=== PATIENT | male | born 1970 | race Caucasian/White ===

== ENCOUNTER 2017-07-07 06:59 | Observation (INO) | payer OTHER ==
[~2017-07-07] VITALS: Ht 182.9 cm; Wt 138.0 kg
[2017-07-07] VITALS (16 sets, daily range): BP systolic 136–166; BP diastolic 76–94; PULSE 42–96; TEMP 36.6–37; O2SAT 94–98; Ht 182.9 cm; Wt 138.0 kg
[~2017-07-07 06:59] MED LIST: ACC10 PO; COD PO; FLX10 PO; LACTATED RINGER'S 1000ML 1,000 ML IV SCH; SIMV40TA2 PO; TYLENOL PO
[2017-07-07] MEDS ORDERED: FENTANYL CITRATE INJ 50 MCG/1 ML 2 ML VIAL IV PRN (07:00)
[2017-07-07] MEDS ORDERED: EpHEDrine SULFATE INJ 50 MG/ML AMP IV PRN (07:00)
[2017-07-07] MEDS ORDERED: ONDANSETRON INJ 2 MG/ML 2 ML VIAL IV PRN ×2 (07:00→14:30)
[2017-07-07] MEDS ORDERED: ATROPINE SULFATE 0.1 MG/ML 5ML SYR IV PRN (07:00)
[2017-07-07] MEDS ORDERED: ASPI81TA28 PO (07:23)
[2017-07-07] MEDS ORDERED: METO-596 PO (07:25)
[2017-07-07] MEDS ORDERED: TRAM-10 PO (07:26)
[2017-07-07] MEDS ORDERED: FLUT0.15 (07:28)
[2017-07-07] MEDS ORDERED: FLEC100T21 PO (07:29)
[2017-07-07] MEDS ORDERED: albuterol inhaler INH (07:31)
[2017-07-07] MEDS ORDERED: MIDAZOLAM HCL 1 MG/ML 2ML VIAL ONE ×2 (07:49→09:45)
[2017-07-07] MEDS ORDERED: LIDOCAINE HCL 2% 2 ML VIAL (20MG/ML) ONE (07:49)
[2017-07-07] MEDS ORDERED: FENTANYL CITRATE INJ 50 MCG/1 ML 2 ML VIAL ONE (07:49)
[2017-07-07] MEDS ORDERED: PROPOFOL IV EMULSION 10 MG/ML 20 ML VIAL IV ONE ×10 (07:49→11:32)
--- NOTE | 2017-07-07 08:10 | History & Physical Bridge Note ---
H&P Re-Evaluation Bridge Note: I have examined the patient, reviewed the History & Physical and in the interval since the performance of the History & Physical I have noted the following changes of clinical significance: No changes noted
[2017-07-07] MEDS ORDERED: HEPARIN SOD (PORCINE) 1000 UNIT/ML 10 ML VIAL ONE (08:23)
[2017-07-07] MEDS ORDERED: LIDOCAINE HCL 1% 20 ML VIAL ONE (08:28)
[2017-07-07] MEDS ORDERED: KETAMINE HCL INJ 50 MG/ML 10 ML VIAL ONE (10:02)
[2017-07-07] MEDS ORDERED: HydrALAZINE HCL 20 MG/ML VIAL ONE (10:20)
[2017-07-07] MEDS ORDERED: OXYCODONE/ACETAMINOPHEN 5-325 TAB PO PRN (11:45)
[2017-07-07] MEDS ORDERED: ACETAMINOPHEN 325 MG TAB PO PRN (11:45)
[2017-07-07] MEDS ORDERED: TRAMADOL HCL 50 MG TAB PO PRN (11:45)
[2017-07-07] MEDS ORDERED: ALBUTEROL HFA 8 GM INHALER INH PRN (11:45)
--- NOTE | 2017-07-07 11:58 | [facility] Post Operative Brief Note ---
Immediate Operative Summary Operative Date Jul 07, 2017. Pre-Operative Diagnosis p. atrial flutter Post-Operative Diagnosis same, bidirectional block across cavo-tricuspid isthmus Procedure(s) Performed eps, 3d mapping of his bundle, 3d activation map of RA, radiofrequency ablation of cavo-tricuspid isthmus (CTI) Surgeon serena sanchez Broadcast Operations Director Surgeon(s) none Estimated Blood Loss <5cc Findings see official report Fluids (cc crystalloids) 2000 Specimens None Drains None Anesthesia 5mg versed, 100mcg fentanyl, 50mg ketamine, 1500mg propofol Complication(s) None Disposition PCU
[2017-07-07] MEDS ORDERED: LPR100 PO (12:01)
--- NOTE | 2017-07-07 12:02 | Discharge Instructions ---
Discharge Instructions Date of Service Jul 07, 2017. Admission Reason for Admission: Atrial Flutter With Anesthesia Discharge Discharge Diagnosis / Problem: paroxysmal atrial flutter Discharge Goals Goal(s): Improve function Activity Recommendations Activity Limitations: as noted below Lifting Limitations: no more than 10 pounds (for 1 week) May Resume Sexual Activity: after one week Shower/Bathe: tomorrow Driving or Machine Use: resume 1 day after discharge . Instructions / Follow-Up Instructions / Follow-Up ACTIVITY RECOMMENDATIONS: It is common to feel weak and fatigue for a few days. * Do not drive or operate any motorized equipment for the next 1 day. * Limit stair usage (2 or 3 trips a day only) for the next three days. * Do not lift anything heavier than 10 pounds for the next 7 days. * Do not engage in vigorous exercise or any sports for the next five days. * You may shower the day after your procedure, but do not immerse the area for three days. Cleanse the site gently with soap and water. SPECIAL CARE INSTRUCTIONS: * You may replace the pressure dressing or band-aid the morning after the procedure. * After your procedure, it is normal to have a small bruise or small lump at the site. Examine your site daily for any change in the bruise or lump, redness, swelling, drainage or numbness. Notify your doctor if any change. BLEEDING: * If there is a small amount of bleeding at the site, lie down and apply firm pressure with a clean cloth for ten minutes. When the bleeding stops, lie quietly keeping the procedure limb straight for six hours. Notify your doctor as soon as possible. * If the bleeding does not stop after ten minutes or if there is a large amount of bleeding or spurting, call 911 immediately. Continue to lie down and hold firm pressure until help arrives. SKIN IRRITATION: * You may experience some redness and/or swelling in the area where radiation was administered. If any skin irritation occurs, please contact your family physician. FOLLOW UP VISIT: Keep any scheduled doctor appointments. Current Hospital Diet Patient's current hospital diet: AHA Diet (Heart Healthy) Discharge Diet Recommended Diet: Regular Diet Procedures Procedures Performed: eps, 3d mapping of his bundle, 3d activation map of RA, radiofrequency ablation of cavo-tricuspid isthmus (CTI) Pending Studies Studies pending at discharge: no Medical Emergencies . Who to Call and When: Medical Emergencies: If at any time you feel your situation is an emergency, please call 911 immediately. . Non-Emergent Contact Non-Emergency issues call your: Director Treasurer . . "Provider Documentation" section prepared by Fatimah Villanueva. . VTE Core Measure Inpt VTE Proph given/why not?: Treatment not indicated
--- NOTE | 2017-07-07 12:05 | Discharge Summary ---
Discharge Summary Date of Service Jul 07, 2017. Discharge Summary Admission Date: 07/07/2017 Discharge Date: Jul 08, 2017 Discharge Disposition: Home Principal Diagnosis: paroxysmal atrial flutter Secondary Diagnoses/Problems: htn chronic back pain Procedures: eps, 3d mapping of his bundle and 3d activation mapping of the RA; radiofrequency ablation of cavo-tricuspid isthmus Medication Reconciliation New Medications: Metoprolol Tartrate (Metoprolol Tartrate) 100 Mg Tab 50 MG PO BID for 30 Days, #30 TAB Continued Medications: Aspirin (Aspirin Ec) 81 Mg Tab 81 MG PO DAILY Fluticasone Propionate (Nasal) (Flonase Allergy Relief) 50 Mcg/Act Spr 2 SPRAYS NA DAILY Tramadol (Ultram) 50 Mg Tab 50 MG PO Q6 PRN for Pain, TAB [albuterol inhaler] () 2 PUFFS INH QID PRN for Wheezing Discontinued Medications: Flecainide (Tambocor) 100 Mg Tab 100 MG PO Q12, TAB Metoprolol Tartrate (Lopressor) 100 Mg Tab 100 MG PO BID, TAB took 5omg night before surgery or half tab as dirested by MD Admission Information Physical Exam (per Admitting): aaox3, NAD Supple, No JVD Nrl S1/S2, no murmur CTA b/l no w/r/r soft NT/ND No edema b/l No focal deficits Skin intact Hospital Course Pt admitted for elective atrial flutter ablation. He underwent procedure without any complications; monitored overnight. His flecainide was discontinued and his metoprolol was decreased. He was discharged home following day. Total time spent on discharge = 30 minutes This includes examination of the patient, discharge planning, medication reconciliation, and communication with other providers. Discharge Instructions ACTIVITY RECOMMENDATIONS: It is common to feel weak and fatigue for a few days. * Do not drive or operate any motorized equipment for the next 1 day. * Limit stair usage (2 or 3 trips a day only) for the next three days. * Do not lift anything heavier than 10 pounds for the next 7 days. * Do not engage in vigorous exercise or any sports for the next five days. * You may shower the day after your procedure, but do not immerse the area for three days. Cleanse the site gently with soap and water. SPECIAL CARE INSTRUCTIONS: * You may replace the pressure dressing or band-aid the morning after the procedure. * After your procedure, it is normal to have a small bruise or small lump at the site. Examine your site daily for any change in the bruise or lump, redness, swelling, drainage or numbness. Notify your doctor if any change. BLEEDING: * If there is a small amount of bleeding at the site, lie down and apply firm pressure with a clean cloth for ten minutes. When the bleeding stops, lie quietly keeping the procedure limb straight for six hours. Notify your doctor as soon as possible. * If the bleeding does not stop after ten minutes or if there is a large amount of bleeding or spurting, call 911 immediately. Continue to lie down and hold firm pressure until help arrives. SKIN IRRITATION: * You may experience some redness and/or swelling in the area where radiation was administered. If any skin irritation occurs, please contact your family physician. FOLLOW UP VISIT: Keep any scheduled doctor appointments.
[2017-07-07] MEDS ORDERED: IV FLUIDS COMPLETED PRN (12:30)
[2017-07-07] MEDS ORDERED: ONDANSETRON INJ 2 MG/ML 2 ML VIAL ONE (14:11)
[2017-07-07] MEDS ORDERED: NURSING VERBAL MED ORDER ONE (14:15)
--- NOTE | 2017-07-07 14:22 | Anesthesiology Progress Note ---
Anesthesia Post Op Note Date & Time Jul 07, 2017 at 14:21 Vital Signs Pain Intensity: 4.0 Vital Signs Past 12 Hours Date Time Temp Pulse Resp B/P (MAP) Pulse Ox O2 Delivery O2 Flow Rate FiO2 07/07/17 12:25 76 16 138/75 (96) 96 Room Air 07/07/17 12:15 78 18 136/74 (94) 97 Room Air 07/07/17 12:05 64 16 129/83 (98) 97 Room Air 07/07/17 11:50 79 16 144/74 (97) 99 Mask 6 07/07/17 11:45 83 16 155/86 (109) 99 Mask 6 07/07/17 11:40 86 16 151/78 (102) 99 Mask 6 07/07/17 11:37 36.6 67 19 136/84 96 Room Air 07/07/17 07:40 37 59 18 166/94 (118) 98 Room Air Notes Mental Status: alert / awake / arousable, participated in evaluation Pt Amnestic to Procedure: Yes Nausea / Vomiting: adequately controlled Pain: adequately controlled Airway Patency, RR, SpO2: stable & adequate BP & HR: stable & adequate Hydration State: stable & adequate Anesthetic Complications: no major complications apparent
--- NOTE | 2017-07-07 15:14 | OPERATIVE REPORT ---
DATE OF OPERATION: 07/07/2017 PREOPERATIVE DIAGNOSIS: Paroxysmal atrial flutter. POSTOPERATIVE DIAGNOSIS: Same, along with bidirectional cavotricuspid isthmus block. PROCEDURE: Empiric radiofrequency ablation across the cavotricuspid isthmus, 3d mapping of his bundle and right atrium, EPS SURGEON: Dr. Fatimah Villanueva. OYSTER GRADER: None. ANESTHESIA: Monitored anesthetic care administered via anesthesiology. A total of 5 mg of Versed, 100 mcg of fentanyl, 1,500 mg of propofol, 50 mg of ketamine. IV FLUIDS: 2 liters. BLOOD LOSS: Less than 5 mL. COMPLICATIONS: None. CONDITION: Stable. URINE OUTPUT: Not applicable. SPECIMENS: None. FINDINGS: See below. DRAINS: None. INDICATIONS: This is a 46-year-old gentleman who has a past medical history of hypertension, chronic back pain. He was recently admitted to the [facility] for chronic back pain and while on telemetry he was found to have continued episodes of atrial flutter. He was ultimately discharged on high dose beta raymon and flecainide. He has been recommended to have an atrial flutter ablation, CHADS2-VASc score is 1 and is maintained on aspirin. CONSENT: Consent was obtained prior to the patient going into the electrophysiology lab. The patient was informed of the risks, benefits, alternatives to the procedure. Risks include but not limited to sudden cardiac , cardiac arrhythmias, cerebrovascular accident, myocardial infarction, injury to the blood vessels, chamber of the heart or the [place] electrical system where he would need a permanent pacemaker, bleeding and infection. The patient understood these risks and agreed to the procedure as planned. Informed consent was obtained. DESCRIPTION OF THE PROCEDURE: The patient was brought into the electrophysiology lab in a fasting state. He was connected to continuous biotech production specialist. A timeout was performed to ensure patient's identity and procedure correctly. The patient was prepped and draped over the bilateral groins in normal surgical standard fashion. Monitored anesthetic care was given throughout the case for patient's comfort level via anesthesiology. Ada precautions were maintained throughout the procedure. 10 mL of 1% lidocaine, bupivacaine mixture were given in the bilateral groins. Then using the modified Seldinger technique, venous access was obtained in the following manner. LEFT FEMORAL VEIN: A 7-Upper Sorbian sheath followed by a 20 pole Halo catheter positioned around the right atrium. A 7-Upper Sorbian sheath followed by a Biosense Decapolar catheter in the coronary sinus catheter positioned out in the coronary sinus. In the right femoral vein initially had a 6-Upper Sorbian sheath followed by a Biosense quadripolar catheter positioned over the His bundle. This was eventually swapped out for an SRO sheath followed by a Biosense 4 mm SmartTouch ThermoCool DF curve ablation catheter. Electrophysiology study was performed with the following findings: SD interval 148 milliseconds, QRS 124 milliseconds, QT 430 milliseconds. Sinus cycle length 1022 milliseconds, AH 74 milliseconds, HV 40 milliseconds. Atrial burst pacing from the lateral wall on the Halo catheter, AV Wenckebach was found to be 360 milliseconds, AV node ERP was 700/300 and 400/300. The atrial ERP was 700/220 and 400/200. Of note, with atrial extrastimuli 400/200 I did have brief atrial flutter with a tachycardia cycle length of 206, but this broke on its own. Pacing from halo distal on the lateral wall measuring to the CS prox was 56 milliseconds. Pacing from CS prox measuring to the Halo distal on the lateral wall was 56 milliseconds. We then set up to do an empiric atrial flutter with cavotricuspid isthmus ablation. The 6-Upper Sorbian sheath in the right femoral vein was swapped out for an SRO and then the Biosense ThermoCool SmartTouch 4 mm ablation catheter was placed in the body. We did 3D mapping of the His bundle region and the cavotricuspid isthmus down to the IVC-RA junction. Then I started a series of radiofrequency benito about 1 minute in duration at 30 potter along the cavotricuspid isthmus from the tricuspid valve all the way down to the IVC-RA junction. Of note, up by the tricuspid valve there was a ridge. I ended up going medial and lateral to this ridge. The conduction time through the right atrium did expand out to 90 milliseconds so pacing lateral right atrium measuring to the septum on the coronary sinus prox was 90 milliseconds and vice versa pacing lateral the CS prox to the lateral right atrium was about 90 milliseconds, there was about a 30 millisecond difference, although I would have liked to have seen longer to ensure that I did have no breakthrough I did 3D activation mapping of the right atrium when we are pacing the proximal coronary sinus. There did not appear to be any breakthrough through out cavotricuspid isthmus line and the signals when pacing the CS prox distal on the Halo catheter did appear to show that there was successful bidirectional block so I assume that the right atrium was on the smaller size and that the conduction time going from 56-90 was an acceptable bidirectional block. Post-ablation electrophysiology study as follows: SD interval 150 milliseconds, QRS 120 milliseconds, QT 420 milliseconds. Sinus cycle length 1000 milliseconds, AH 84 milliseconds, HV 42 milliseconds, AV Wenckebach 340 milliseconds, AV node 700/300 and 400/290. Atrial ERP 700/250 and 400/210. Right ventricular ERP was 600/240 and 400/200. There remained bidirectional block over 30 minutes after our last ablation. All the catheters were then removed from the body and the sheaths were pulled with manual compression being held to establish hemostasis. IMPRESSION: 1. Successful bidirectional block along the cavotricuspid isthmus. 2. Normal arteriovenous kacy pathology. PLAN: Monitor patient overnight, 12-lead ECG. He is not allowed to do any heavy lifting for 1 week. He can stop his flecainide. We will decrease the metoprolol from 100 b.i.d. to 50 b.i.d. and slowly hopefully come down on the vessel over the next month. Continue aspirin and he will follow up in my office in 1 month's time. I attest to the content of the Intraoperative Record and any orders documented therein. Any exceptions are noted below. MARCOD
[2017-07-07] MEDS: METOPROLOL TARTRATE 50 MG TAB PO SCH (21:16)
[2017-07-08] MEDS ORDERED: NURSING VERBAL MED ORDER ONE (00:15)
[2017-07-08] MEDS ORDERED: CALCIUM CARBONATE 500 MG CHEWABLE PO PRN (00:15)
[2017-07-08 04:24] VITALS: BP 154/80; PULSE 71; TEMP 36.8; O2SAT 96
[2017-07-08 07:52] VITALS: BP 147/86; PULSE 78; TEMP 36.8; O2SAT 97
[2017-07-08] MEDS: METOPROLOL TARTRATE 50 MG TAB PO SCH (07:59)
--- NOTE | 2017-07-08 08:32 | Cardiology Follow-Up ---
Subjective Subjective Date of Service: Jul 08, 2017. Pt evaluation today including: conversation w/ patient, physical exam Pain: none Review of Systems Constitutional: No fatigue Respiratory: No shortness of breath, No dyspnea on exertion Cardiac: No chest pain, No edema, No palpitations Abdomen: No diarrhea Objective Vital Signs Last Vital Signs Documentation Date Time Temp Pulse Resp B/P (MAP) Pulse Ox O2 Delivery O2 Flow Rate FiO2 07/08/17 07:52 36.8 78 16 147/86 (106) 97 Room Air 07/07/17 11:50 6 Physical Exam: General Appearance: WD/WN, no apparent distress Eyes: bilateral eyes PERRL, bilateral eyes EOMI Neck: supple, no JVD Respiratory/Chest: lungs clear, normal breath sounds Cardiovascular: regular rate, rhythm, no JVD, no murmur Abdomen: soft Extremities: no pedal edema Neurologic/Psychiatric: cytometry technologist II-XII nml as tested, alert, oriented x 3 Skin: warm/dry, no rash Assessment and Plan Impression: 1. pAtrial flutter s/p CTI ablation 07/07/2017 2. HTN 3. Chronic back pain Plan: -Ok for discharge home today -Stop flecainide -Decrease metoprolol to 50mg BID -f/u in my office in 1 month Discharge planning: home Medications: Medications Administered Medications (Trade) Dose Ordered Sig/Dav Route Start Time Stop Time Status Last Admin Dose Admin Acetaminophen (Tylenol Tab) 650 mg Q4H PRN PO 07/07/17 11:45 08/06/17 11:44 07/07/17 16:46 650 MG Aspirin (Ecotrin Tab) 81 mg DAILY PO 07/08/17 09:00 08/07/17 08:59 07/08/17 07:59 81 MG Fluticasone Propionate (Flonase Nasal [place]) 2 sprays DAILY NA 07/08/17 09:00 08/07/17 08:59 07/08/17 08:00 2 SPRAYS Metoprolol Tartrate (Lopressor Tab) 50 mg BID PO 07/07/17 21:00 08/06/17 20:59 07/08/17 07:59 50 MG Tramadol HCl (Ultram Tab) 50 mg Q6 PRN PO 07/07/17 11:45 08/06/17 11:44 11/29/17 21:17 50 MG Calcium Carbonate (Tums Chew Tab) 1,000 mg Q4H PRN PO 07/08/17 00:15 08/07/17 00:14 07/08/17 00:26 1,000 MG Lab Results: Telemetry:SR ECG:SR
[2017-07-08] MEDS ORDERED: FLUTICASONE PROPIONATE NA SPR 16 GM BTL SCH (09:00)
[2017-07-08] MEDS ORDERED: ASPIRIN 81 MG ECTAB PO SCH (09:00)
[2017-07-08 09:07] VITALS: BP 147/86; PULSE 78; TEMP 36.8; O2SAT 97
--- NOTE | 2017-07-08 09:45 | Anesthesiology Progress Note ---
Anesthesia Post Op Note Date & Time Jul 08, 2017 at 09:44 Vital Signs Pain Intensity: 0.0 Vital Signs Past 12 Hours Date Time Temp Pulse Resp B/P (MAP) Pulse Ox O2 Delivery O2 Flow Rate FiO2 07/08/17 09:07 36.8 78 16 97 Room Air 07/08/17 08:00 Room Air 07/08/17 07:52 36.8 78 16 147/86 (106) 97 Room Air 07/08/17 04:24 36.8 71 20 154/80 (104) 96 Room Air 07/08/17 04:00 Room Air 07/07/17 23:59 Room Air 07/07/17 23:35 36.8 96 20 148/92 (110) 96 Room Air Notes Mental Status: alert / awake / arousable, participated in evaluation Pt Amnestic to Procedure: Yes Nausea / Vomiting: adequately controlled Pain: adequately controlled Airway Patency, RR, SpO2: stable & adequate BP & HR: stable & adequate Hydration State: stable & adequate Anesthetic Complications: no major complications apparent
== END 2017-07-08 10:28 | disposition home or self-care (01) ==
LOC: C.ACU 06:59 → ENRESERV 10:01 → C.2E 11:47
PROVIDERS: ADMIT Internal Medicine; ATTEND Internal Medicine
DX: I48.92 Unspecified atrial flutter (principal); I10 Essential (primary) hypertension; M54.9 Dorsalgia, unspecified; G89.29 Other chronic pain; J45.909 Unspecified asthma, uncomplicated; E66.9 Obesity, unspecified; Z68.41 Body mass index [BMI] 40.0-44.9, adult; Z79.82 Long term (current) use of aspirin; Z79.899 Other long term (current) drug therapy; Z90.89 Acquired absence of other organs; F17.200 Nicotine dependence, unspecified, uncomplicated